=== PATIENT | female | born 1965 | race Two or more races ===

== ENCOUNTER 2018-08-27 09:10 | Day surgery (SDC) | payer OTHER ==
[2018-08-27] MEDS ORDERED: DIAZEPAM 5 MG TAB PO ONE (09:16)
[2018-08-27] MEDS ORDERED: NS 1,000 ML IV ONE (09:16)
[2018-08-27] MEDS ORDERED: BACITRACIN IRRIGATION/NS 50,000 UNITS/1,000 ML BTL IRR ONE (09:16)
[2018-08-27] MEDS ORDERED: ceFAZolin 2 GM/DEXTROSE 100 ML IV ONE (09:16)
[2018-08-27] MEDS ORDERED: diphenhydrAMINE 25 MG CAP PO ONE (09:16)
[2018-08-27] MEDS ORDERED: LIDOCAINE 1% 300 MG/30 ML SDV ONE (09:58)
[2018-08-27] MEDS ORDERED: MIDAZOLAM 2 MG/2 ML VIAL ONE (09:59)
[2018-08-27] MEDS ORDERED: fentaNYL 100 MCG/2 ML INJ ONE (09:59)
[2018-08-27] MEDS ORDERED: LIDO/EPI 1% **for epidural** 30 ML SDV ONE (09:59)
[2018-08-27] MEDS ORDERED: BUPIVACAINE 0.5% 30 ML SDV ONE (09:59)
[2018-08-27 10:10] LABS: PLATELET COUNT 336 10^3/uL (150-400)
[2018-08-27 10:27] LABS: INR 1.01 (0.83-1.16); PROTIME(PATIENT) 12.9 SEC (12.0-15.0)
--- NOTE | 2018-08-27 10:39 | PDPROPOC ---
Sedation Plan of Care Sedation Plan of Care: vital signs stable, mental status noted, patient educated of risks, benefits, alternatives, patient can tolerate sedation ASA Classification: ASA 1 Planned drugs: fentanyl, midazolam Mallampati Score: Class 1 Mallampati Reference Image: Patient passed 3-3-2 rule?: Yes
--- NOTE | 2018-08-27 10:41 | PDGENHP ---
History & Physical Chief Complaint: Pacer generator at end of life History of Present Illness: 53 yo female with sick sinus syndrome, hx. of PPM with deveice at end of life here for generator change. Relevant Physical Exam: 110/70 54. No jvp. pacer in right subclavian fossa. RRR. abdomen soft. extm. no edema Cardiorespiratory Assessment: Pacer at end of life for generator change.
--- NOTE | 2018-08-27 11:11 | PDCTREPORT ---
Cardiothoracic Procedure Rpt Cardiothoracic Procedure Report: Procedure: Pacemaker generator change. After obtaining informed consent, the patient was brought to the laborer general in the fasting state. The old pacer scar was anesthetized with 2% Xylocaine. An incision was made through the old scar. Using blunt dissection and the Bovie catheter the old pocket was entered and the device delivered to the field. Screws were loosened and the device was taken from the field. Leads were tested. Appropriate sensitivities and thresholds were confirmed. The pocket was irrigated. A new device was delivered. Leads were attached and screws were tightened per industry standards. The system was coiled into the pocket. Standard three layer closure was used for the pocket and skin. Pressure dressing was applied. Conclusion : successful generator change. Edora 8 DR-T Ref [id number] Atrial lead Setrox S53 [id number] Ventricular lead Setrox S45 [id number] A-sense 1.8 mv. Capture at 0.3 v at 0.4 ms 390 ohms V-sense 4.2 mV. Capture at 1.3 V 0.4 ms 507 ohms
[2018-08-27] MEDS ORDERED: ONDANSETRON 4 MG/2 ML VIAL ONE (14:09)
--- NOTE | 2018-08-28 05:40 | CPEKG ---
Test Reason : OPEN Blood Pressure : / mmHG Vent. Rate : 073 BPM Atrial Rate : 074 BPM P-R Int : 166 ms QRS Dur : 131 ms QT Int : 436 ms P-R-T Axes : 047 -38 009 degrees QTc Int : 481 ms Sinus rhythm Right bundle branch block Confirmed by Elsie Hanson ([id number]) on 08/28/2018 5:39:35 AM Referred By: MIMA HACKETT Confirmed By:Elsie Hanson
--- NOTE | 2018-08-28 05:47 | CPEKG ---
Test Reason : OPEN Blood Pressure : / mmHG Vent. Rate : 069 BPM Atrial Rate : 069 BPM P-R Int : 173 ms QRS Dur : 128 ms QT Int : 459 ms P-R-T Axes : 047 -12 -03 degrees QTc Int : 492 ms Sinus rhythm Right bundle branch block Confirmed by Elsie Hanson ([id number]) on 08/28/2018 5:46:42 AM Referred By: MIMA HACKETT Confirmed By:Elsie Hanson
== END 2018-08-27 14:58 | disposition home or self-care (01) ==
LOC: FCATH 09:10
PROVIDERS: ATTEND Internal Medicine Interventional Cardiology
PROC: 0JH607Z Insertion of Cardiac Resynchronization Pacemaker Pulse Generator into Chest Subcutaneous Tissue and Fascia, Open Approach (ICD-10-PCS; principal; 2018-08-27)
PROC: 0JPT0PZ Removal of Cardiac Rhythm Related Device from Trunk Subcutaneous Tissue and Fascia, Open Approach (ICD-10-PCS; principal; 2018-08-27)
DX: Z45.010 Encounter for checking and testing of cardiac pacemaker pulse generator [battery] (principal); I34.0 Nonrheumatic mitral (valve) insufficiency; I49.5 Sick sinus syndrome
CPT/HCPCS: C1785; J0690; J2250; J2405; J3010